=== PATIENT | male | born 1945 | race Two or more races ===

== ENCOUNTER 2021-08-03 11:49 | Emergency (ER) | payer OTHER ==
[~2021-08-03] VITALS: Ht 172.7 cm; Wt 72.6 kg
[~2021-08-03 11:49] MED LIST: CARVEDILOL6.25 MG; COZAAR100 MG; GLIPIZIDE10 MG; HYDRALAZINE HCL50 MG; LASIX40 MG; LEVSIN/SL0.125 MG SL; NIFE60TA3; SIMVASTATIN40 MG; UROXATRAL10 MG
[2021-08-03] MEDS ORDERED: ATORVASTATIN CA40 MG PO (12:11)
[2021-08-03] MEDS ORDERED: FUROSEMIDE40 MG PO (12:12)
[2021-08-03] MEDS ORDERED: DOXAZOSIN MESYLA8 MG PO (12:12)
[2021-08-03] MEDS ORDERED: LEVOTHYROXINE25 MCG PO (12:12)
[2021-08-03] MEDS ORDERED: GLIPIZIDE ER5 MG PO (12:13)
[2021-08-03] MEDS ORDERED: AMLODIPINE-OLM1 EACH (12:13)
== END 2021-08-03 16:08 | disposition home or self-care (01) ==
LOC: ER 11:49
DX: K29.00 Acute gastritis without bleeding (principal); E86.0 Dehydration; Z86.39 Personal history of other endocrine, nutritional and metabolic disease; Z88.6 Allergy status to analgesic agent; Z20.822 Contact with and (suspected) exposure to COVID-19